=== PATIENT | female | born 1985 | race Caucasian/White ===

== ENCOUNTER 2022-06-15 18:17 | Outpatient (CLI) | payer SELFPAY ==
[2022-06-15 19:14] VITALS: BP 117/68; PULSE 74; RESP 16; TEMP 97.9
--- NOTE | 2022-06-30 09:49 | P.MSEPDOC ---
Presenting Problems - Arrival Data Date of Arrival on Unit: 06/15/22 Time of Arrival on Unit: 18:17 Mode of Transport: Ambulatory - Complaint OB-Reason for Admission/Chief Complaint: Decreased Movement Comment: [address] pt [address] George, , 35 3/7 weeks gestation presents to L&D with c/o decreased movement. Patient denies bleeding and loss of fluid. No edema noted, DTRs +2, no headache, dizziness, or abdominal pain. Medical History - Information : 1 Para: 0 Term: 0 : 0 Abortions: Spontaneous or Elective: 0 Number of Living Children: 0 - Gestational Age Gestational Age by GONSALO (wks/days): 35 Weeks and 3 Days Review of Systems - Review of Systems Constitutional: No problems Breast: No problems ENT: No problems Cardiovascular: No problems Respiratory: No problems Gastrointestinal: No problems Genitourinary: No problems Musculoskeletal: No problems Neurological: No problems Skin: No problems Vital Signs - Temperature Temperature: 97.9 F Temperature Source: Oral - Pulse Right Sitting Pulse Rate: 74 Pulse Assessment Method: Automatic Cuff - Respirations Respiratory Rate: 16 Oxygen Delivery Method: Room Air O2 Sat by Pulse Oximetry: 99 - Blood Pressure Right Arm Sitting Blood Pressure: 117/68 Blood Pressure Mean: 84 Blood Pressure Source: Automatic Cuff Medical Screen Scoring - Uterine Contractions Intensity: Absent Resting: Soft to palpation - Assessment - Baby A Baseline FHR: 130 Heart Rate - NICHD Category: Category I (Normal) NST: Reactive Physician Notification - Physician Notified Physician Notified Date: 06/15/22 Physician Notified Time: 18:49 Physician: Marie Siegel New Order Received: Yes - Notification Comment Comment: Call placed to Dr Siegel, report of 37yo pt of Chaim AlvarezP0, 35 3/7 weeks. gestation presents to L&D with c/o decreased movement. Patient denies bleeding and. loss of fluid. No edema noted, DTRs +2, no headache, dizziness, or abdominal pain. EFM. explained to patient and patient verbalized understanding and relief. Orders received to. discharge patient home. Maternal Triage Index - Maternal Triage Index Presenting for scheduled procedure w/no complaint: No - Stat/Priority 1 Stat Priority 1: No - Urgent/Priority 2 Urgent Priority 2: No - Prompt/Priority 3 Prompt Priority 3: No - Non-Urgent/Priority 4 Non-Urgent Priority 4: Yes Criteria Met for Priority 4: Call placed to Dr Siegel, report of 37yo pt of [address] George, , 35 3/7 weeks gestation presents to L&D with c/o decreased movement. Patient denies bleeding and loss of fluid. No edema noted, DTRs +2, no headache, dizziness, or abdominal pain. Disposition - Disposition OB Disposition: Discharge to home Discharge Date: 06/15/22 Discharge Time: 18:54 I agree with the RN Medical Screening Exam: Yes Case reviewed; plan agreed upon as documented in EMR&OBIX.: Yes Diagnosis: decreased movement
== END 2022-06-15 18:54 | disposition home or self-care (01) ==
LOC: FBPOP 18:17
PROVIDERS: ATTEND Obstetrics & Gynecology
DX: O36.8131 Decreased fetal movements, third trimester, fetus 1 (principal); Z3A.35 35 weeks gestation of pregnancy
CPT/HCPCS: 59025; 99213

== ENCOUNTER 2022-07-20 06:00 | Inpatient (IN) | payer BC, OTHER ==
[2022-07-20] MEDS ORDERED: miSOPROStoL 25 MCG TAB VAGINAL PRN (17:18)
[2022-07-20] MEDS: miSOPROStoL 100 MCG TAB VAGINAL PRN ×2 (17:50→20:53)
--- NOTE | 2022-07-20 18:04 | P.HPOB ---
History of Present Illness H&P Date: 07/20/22 Chief Complaint: Here for Cytotec induction for postdates and unfa vorable cervix This is a 37-year-old 4 para 0030 EDC 07/17/2022 at 40-3/7 weeks' gestation. Patient is here for Cytotec induction with unfavorable primiparous cervix. Fetus is been active throughout the . She denies vaginal bleeding or fluid leakage. Past medical history is significant for endometriosis. Past surgical history D&Cs in the past for miscarriages, endometriosis surgery. Current medications vitamins daily. ALLERGIES none known. Family history significant for breast cancer and thyroid disorder. Social history patient works in the [employer] system, she is , she is never been a tobacco smoker and is a former marijuana smoker. history is significant for blood type a negative, antibody screen negative. Rubella status immune. VDRL testing, HIV testing, gonorrhea and chlamydia cultures, hepatitis B surface antigen, urine culture, group B strep cultures all negative. One-hour Glucola 81. On exam patient is 5 foot 4 inches, 212 pounds, vital signs are stable including admission blood pressure 120/75. The general physical exam is within normal limits. Chest is clear in all marshall. Extremities reveal no edema. heart rate is consistent with reactive NST with frequent accelerations. Patient is having irregular uterine contractions on the monitor, they appear to be approximately every 6-12 minutes apart. Cervix is soft, posterior, 1 cm dilated, 50% effaced, -2 station, vertex presentation. Cytotec 25 MCG's is placed posterior to the cervix. Impression: 40-3/7 weeks intrauterine , Cytotec No. 1 placed. All signs reassuring. Plan: Patient will be allowed to have clear liquids. Stadol and/or epidural may be utilized if active labor ensues tonight. Continue Cytotec intravaginally per protocol, every 3 hours 43 doses total. Nothing by mouth after midnight. Patient's questions have all been answered and I believe she understands our plan Review of Systems Constitutional: Reports as per HPI Past Medical History Additional Past Medical History / Comment(s): endometriosis History of Any Multi-Drug Resistant Organisms: None Reported Additional Past Surgical History / Comment(s): abd sx lysis of adhesions Past Anesthesia/Blood Transfusion Reactions: No Reported Reaction Past Psychological History: Anxiety, Depression, PTSD Smoking Status: Never smoker Past Alcohol Use History: None Reported Past Drug Use History: None Reported - Past Family History Mother Family Medical History: Thyroid Disorder Medications and Allergies Home Medications Medication Instructions Recorded Confirmed Type Vit No.179/Iron/Folic 1 each PO DAILY 05/25/22 05/25/22 History [ Tablet] Allergies Allergy/AdvReac Type Severity Reaction Status Date / Time No Known Allergies Allergy Verified 07/20/22 17:12 Exam Vital Signs Temp Pulse Resp BP 07/20/22 17:20 97.7 F 82 16 128/75 Intake and Output 07/20/22 07/20/22 07/20/22 06:59 14:59 22:59 Other: Weight 96.162 kg See dictation under HPI please Assessment and Plan Assessment: 40-3/7 weeks intrauterine , unfavorable cervix. Here for Cytotec induction. All signs reassuring after first dose placed. Plan: Continue Cytotec intravaginally every 3 hours for 3 doses. May have Ambien after midnight if needed. Analgesic options reviewed. Begin oxytocin at 06 100. Time with Patient: Less than 30
[2022-07-20] MEDS ORDERED: BUTORPHANOL 2 MG/ML 1 ML VIAL IV PRN (18:12)
[2022-07-20] MEDS ORDERED: ZOLPIDEM 5 MG TAB PO PRN (18:13)
[2022-07-21] MEDS: miSOPROStoL 100 MCG TAB VAGINAL PRN (00:12)
[2022-07-21] MEDS ORDERED: CARBOPROST TROMETHAMINE 250 MCG/ML 1 ML AMP IM PRN (00:25)
[2022-07-21] MEDS ORDERED: LIDOCAINE 0.5% (PF) 5 MG/ML (50 ML SDV) SQ PRN (00:25)
[2022-07-21] MEDS ORDERED: TRANEXAMIC ACID IN NACL,ISO-OS 1,000 MG in EMPTY BAG 1 BAG IV PRN (00:25)
[2022-07-21] MEDS ORDERED: OXYTOCIN 10 UNIT/ML 1 ML VIAL IM PRN (00:25)
[2022-07-21] MEDS ORDERED: TERBUTALINE 1 MG/ML VIAL SQ PRN (00:25)
[2022-07-21] MEDS ORDERED: METHYLERGONOVINE 0.2 MG/ML 1 ML AMP IM PRN (00:25)
[2022-07-21] MEDS ORDERED: miSOPROStoL 200 MCG TAB PO PRN (00:25)
[2022-07-21] MEDS: LACTATED RINGERS 1,000 ML IV SCH ×4 (03:15→17:55)
[2022-07-21] MEDS ORDERED: OXYTOCIN 30 UNITS/500 ML NS 30 UNIT in SALINE 1 500ML.BAG IV SCH (06:00)
[2022-07-21 06:10] LABS: Basophils % (A) 0 %; Eosinophils # (A) 0.2 k/uL (0-0.7); Eosinophils % (A) 1 %; HCT 37.2 % (34.0-46.0); HGB 12.7 gm/dL (11.4-16.0); Lymphocytes # (A) 2.2 k/uL (1.0-4.8); Lymphocytes % (A) 20 %; MCHC 34.1 g/dL (31.0-37.0); MCV 87.9 fL (80.0-100.0); Mean Platelet Volume 7.7; Monocytes # (A) 0.5 k/uL (0-1.0); Monocytes % (A) 4 %; Neutrophils # (A) 7.9 k/uL (1.3-7.7); Neutrophils % (A) 73 %; Platelet Count 209 k/uL (150-450); RBC 4.24 m/uL (3.80-5.40); RDW 12.5 % (11.5-15.5); WBC 10.9 k/uL (3.8-10.6)
[2022-07-21] MEDS ORDERED: SODIUM CHLORIDE 0.9% 100 ML BAG ONE (07:29)
[2022-07-21] MEDS ORDERED: fentaNYL (PF) 50 MCG/ML 5 ML AMP ONE (07:29)
[2022-07-21] MEDS ORDERED: ROPIVACAINE 5 MG/ML 20 ML AMPULE ONE (07:29)
[2022-07-21] MEDS ORDERED: CITRIC ACID-SODIUM CITRATE 15 ML CUP PO ONE (09:37)
[2022-07-21] MEDS ORDERED: MORPHINE SULFATE (PF) 0.3 MG/0.3 ML SYR ONE (10:22)
[2022-07-21] MEDS ORDERED: KETOROLAC 15 MG/ML 1 ML VIAL ONE (10:22)
[2022-07-21] MEDS ORDERED: ONDANSETRON 4 MG/2 ML VIAL ONE (10:22)
[2022-07-21] MEDS ORDERED: LIDOCAINE HCL/PF 20 MG/ML 10 ML AMP ONE (10:22)
[2022-07-21] MEDS ORDERED: OXYTOCIN 10 UNIT/ML 1 ML VIAL ONE (10:22)
[2022-07-21] MEDS ORDERED: diphenhydrAMINE 50 MG/ML 1 ML VIAL IVP PRN ×2 (11:09)
[2022-07-21] MEDS ORDERED: NALOXONE 0.4 MG/ML 1 ML VIAL IV PRN (11:09)
[2022-07-21] MEDS ORDERED: diphenhydrAMINE 50 MG CAP PO PRN (11:09)
[2022-07-21] MEDS ORDERED: diphenhydrAMINE 25 MG CAP PO PRN (11:09)
[2022-07-21] MEDS ORDERED: METOCLOPRAMIDE 5 MG/ML 2 ML VIAL IVP PRN (11:09)
[2022-07-21] MEDS ORDERED: MEASLES-MUMPS-RUBELLA VACC/PF 12,500 UNIT/0.5 ML VIAL SQ ONE (11:09)
[2022-07-21] MEDS ORDERED: ONDANSETRON 4 MG/2 ML VIAL IVP PRN (11:09)
--- NOTE | 2022-07-21 11:09 | P.OP ---
Date of Procedure: 07/21/22 Preoperative Diagnosis: 40-4/7 weeks intrauterine , nonreassuring heart tones in the first stage of labor. Postoperative Diagnosis: Same, liveborn male infant, left occiput transverse position. Procedure(s) Performed: Primary low transverse section Anesthesia: epidural Surgeon: Clarissa George Fabrication Manager #1: Marie Siegel Estimated Blood Loss (ml): 300 IV fluids (ml): 700 Urine output (ml): 150 Pathology: other (Placenta) Condition: stable Disposition: PACU Operative Findings: Liveborn male infant, left occiput transverse, 6 lbs. 13 oz., 3090 g. Description of Procedure: Patient is brought to the operating suite where a epidural previously placed was "topped off". She's placed in the dorsal supine position with left lateral uterine displacement. Antibiotics are given. Abdomen is prepped and draped in usual sterile fashion. The appropriate timeout is performed to assure proper patient and procedural identification. Connolly catheter to direct drainage. Vaginal prep has been performed. The analgesia is checked and noted to be adequate. A low transverse skin incision is made in this is carried down through the subcutaneous tissue which is only approximately 3 cm deep. Fascia is isolated, scored, extended bilaterally with curved Casey scissors. Peritoneum is next identified and incised, there is no bowel or bladder involvement. Blad oscar blade is placed over the dome of the bladder and at all times the bladder is Well from the operative field. A low transverse uterine incision is made in this is extended with blunt dissection. 's head is delivered in the left occiput transverse position. The oropharynx, nasopharynx, and external nares were all bulb suctioned. Patient is officially delivered of a liveborn male at 1036 hrs. Umbilical cord is doubly clamped and ligated, he is handed to waiting terminal supervisor. weighs 6 lbs. 13 oz. or 3090 g. Placenta is delivered manually, it is inspected and noted to be intact with trivascular cord at 1037 hours. Uterus is then externalized and massaged. It is swept clean with a sterile sponge to avoid any retained products of conception. Uterus is closed in a two-step fashion, first layer running locking, second layer imbricated for excellent reapproximation. Ovaries and tubes appear normal. Abdomen is suctioned with suction on guard posterior to the uterus. Uterus is placed gently back into the abdominal cavity. Bilateral gutters are inspected and cleaned. Uterine incision is nicely intact, clean and dry. Peritoneum is allowed to close by secondary intention. Fascia is closed in a running fashion using 0 Vicryl suture with over ligation in the midline. Subcutaneous tissue is is irrigated, clean and dry. It is reapproximated in a running stitch of 3-0 Vicryl. 4-0 undyed Monocryl is used for final skin closure in a subcuticular manner. Steri-Strips and Mastisol are applied to the wound. The uterus is massaged for a small amount of lochia. Connolly is noted to be draining clear urine. scores on 8 and 9 at one and 5 minutes respectively. Patient is requesting circumcision for her son.
[2022-07-21] MEDS: ACETAMINOPHEN TAB 500 MG TAB PO SCH ×2 (14:05→20:12)
[2022-07-21] MEDS: IBUPROFEN 600 MG TAB PO SCH ×2 (17:35→23:29)
[2022-07-21] MEDS: SENNOSIDES-DOCUSATE SODIUM 1 EACH TAB PO SCH (20:15)
[2022-07-22] MEDS: LACTATED RINGERS 1,000 ML IV SCH ×2 (00:12→09:33)
[2022-07-22] MEDS: ACETAMINOPHEN TAB 500 MG TAB PO SCH ×4 (02:43→20:00)
[2022-07-22] MEDS: IBUPROFEN 600 MG TAB PO SCH ×3 (05:11→17:50)
--- NOTE | 2022-07-22 06:28 | P.PN ---
Subjective Progress Note Date: 07/22/22 Principal diagnosis: We will first postoperative day Positive flatus. Minimal pain. No complaints. Objective - Vital Signs Vital signs: Vital Signs Temp 97.6 F 07/22/22 04:00 Pulse 81 07/22/22 04:00 Resp 18 07/22/22 04:00 BP 106/72 07/22/22 04:00 Pulse Ox 98 07/22/22 04:00 FiO2 Intake & Output 07/21/22 07/21/22 07/22/22 06:59 18:59 06:59 Intake Total 10.533 400 Output Total 975 800 Balance -964.467 -400 Intake: Intake, IV Titration 10.533 Amount Oxytocin 30 Units/500 ml 10.533 Ns 30 unit In Saline 1 500ml.bag @ Per Protocol IV .Q0M KIM Rx#:[id number] Oral 400 Output: Urine 400 800 Estimated Blood Loss 300 Output, Quantitative 275 Blood Loss Other: Voiding Method Indwelling Catheter # Voids 2 1 - Constitutional General appearance: Present: average body habitus, cooperative - EENT Eyes: Present: PERRLA ENT: Present: hearing grossly normal - Neck Thyroid: bilateral: normal size - Respiratory Respiratory: bilateral: CTA - Cardiovascular Rhythm: regular - Gastrointestinal Gastrointestinal Comment(s): Incision clean, dry, intact, Steri-Strips applied. Fundus firm, midline, symmetric, 18 General gastrointestinal: Present: normal bowel sounds - Integumentary Integumentary: Present: normal - Neurologic Neurologic: Present: CNII-XII intact - Musculoskeletal Musculoskeletal: Present: gait normal - Psychiatric Psychiatric: Present: A&O x's 3, appropriate affect, intact judgment & insight - Labs CBC & Chem 7: 07/21/22 05:42 Assessment and Plan Assessment: Doing well first postoperative day, requesting circumcision Plan: Circumcision now. Advanced diet and activity. Shower. Regular food. Anticipate discharge home tomorrow. Time with Patient: Less than 30
[2022-07-22 06:53] LABS: Basophils % (A) 0 %; Eosinophils # (A) 0.1 k/uL (0-0.7); Eosinophils % (A) 1 %; HCT 33.5 % (34.0-46.0); HGB 11.3 gm/dL (11.4-16.0); Lymphocytes # (A) 1.3 k/uL (1.0-4.8); Lymphocytes % (A) 13 %; MCH 30.1 pg (25.0-35.0); MCHC 33.9 g/dL (31.0-37.0); MCV 88.8 fL (80.0-100.0); Mean Platelet Volume 7.7; Monocytes # (A) 0.5 k/uL (0-1.0); Monocytes % (A) 5 %; Neutrophils # (A) 8.2 k/uL (1.3-7.7); Neutrophils % (A) 80 %; Platelet Count 179 k/uL (150-450); RBC 3.77 m/uL (3.80-5.40); RDW 12.7 % (11.5-15.5); WBC 10.3 k/uL (3.8-10.6)
--- NOTE | 2022-07-22 07:24 | P.PN ---
Progress Note - Text Progress Note Date: 07/22/22 Postoperative day 1 status post section under epidural anesthesia, and epidural morphine given for postoperative analgesia, patient doing well, there is no anesthesia related complications, Patient had no headache, vital signs stable , Assessment and plan= postop day 1 status post , doing well there is no anesthesia related complication.
[2022-07-22] MEDS: SENNOSIDES-DOCUSATE SODIUM 1 EACH TAB PO SCH ×2 (08:40→20:00)
[2022-07-23] MEDS: IBUPROFEN 600 MG TAB PO SCH ×4 (00:22→17:12)
[2022-07-23] MEDS: ACETAMINOPHEN TAB 500 MG TAB PO SCH ×2 (05:02→08:11)
[2022-07-23 05:03] VITALS: RESP 16
[2022-07-23] MEDS: SENNOSIDES-DOCUSATE SODIUM 1 EACH TAB PO SCH (08:11)
[2022-07-23 08:25] VITALS: PULSE 65
[2022-07-23 15:45] VITALS: BP 104/69; TEMP 97.8
--- NOTE | 2022-07-23 16:42 | P.DS ---
Providers Date of admission: 07/20/22 17:08 Expected date of discharge: 07/23/22 Attending physician: Clarissa George Primary care physician: Stated None - Discharge Diagnosis(es) (1) Post-dates Current Visit: Yes Status: Acute (2) Advanced maternal age (AMA) in Current Visit: Yes Status: Acute (3) Non-reassuring cardiotocographic tracing Current Visit: Yes Status: Acute (4) S/P section Current Visit: Yes Status: Acute Hospital Course: This is a 37 yo at 40 4/7 weeks that presented to labor and delivery for cytotec induction of labor for post dates. she was admitted and cytotec was placed. for full detail on this patient please see the dictated history and physical. she had noted non reassuring heart tones and was taken to the OR for primary low transverse section. procedure was completed without difficulty and she delivered a viable male infant 6-13, at 10:36 she has done well post . she is ambulating and voiding without difficulty and tolerating a regular diet without nausea and vomiting. she is breast feeding and has worked with prior to discharge. Patient Condition at Discharge: Good Plan - Discharge Summary Discharge Rx Participant: No New Discharge Prescriptions: No Action Vit No.179/Iron/Folic [ Tablet] 1 each PO DAILY Discharge Medication List Vit No.179/Iron/Folic [ Tablet] 1 each PO DAILY 05/25/22 [History] Follow up Appointment(s)/Referral(s): Clarissa George MD [STAFF PHYSICIAN] - 2 Weeks Patient Instructions/Handouts: (DC), (GEN) Activity/Diet/Wound Care/Special Instructions: no tub baths or intercourse until 6 weeks , post bleeding is discussed and questions answered. she is to call the office and make an appointment for 2 weeks for a routine Post op check with Dr. George. Discharge Disposition: HOME SELF-CARE
== END 2022-07-23 18:39 | disposition home or self-care (01) | DRG 788 ==
LOC: 4FBP 17:08
PROVIDERS: ADMIT Obstetrics & Gynecology; ATTEND Obstetrics & Gynecology
PROC: 3E0P7VZ Introduction of Hormone into Female Reproductive, Via Natural or Artificial Opening (ICD-10-PCS; 2022-07-20)
PROC: 10D00Z1 Extraction of Products of Conception, Low, Open Approach (ICD-10-PCS; principal; 2022-07-21 10:31)
DX: O48.0 Post-term pregnancy (principal); O99.344 Other mental disorders complicating childbirth; O76 Abnormality in fetal heart rate and rhythm complicating labor and delivery; O32.2XX0 Maternal care for transverse and oblique lie, not applicable or unspecified; F43.10 Post-traumatic stress disorder, unspecified; F32.A Depression, unspecified; F41.9 Anxiety disorder, unspecified; Z3A.40 40 weeks gestation of pregnancy; Z37.0 Single live birth
CPT/HCPCS: 85025; 86850; 86900; 86901; 88307